=== PATIENT | female | born 1990 | race Caucasian/White ===

== ENCOUNTER → 2017-05-01 | Outpatient (CLI) | payer OTHER ==
[2017-05-03 09:50] LABS: FOLLICLE STIMULATING HORMONE 7.3 mIU/mL (.); LUTEINIZING HORMONE 6.8 mIU/mL (.); PROLACTIN 13.3 ng/mL (4.8-23.3)
== END ==
LOC: OD 08:11
PROVIDERS: ATTEND Specialist
DX: N97.9 Female infertility, unspecified (principal)
CPT/HCPCS: 36415; 83001; 83002; 84146

== ENCOUNTER → 2017-05-06 | Outpatient (CLI) | payer OTHER ==
--- NOTE | 2017-05-06 16:07 | RADIOLOGY REPORT (SQ) ---
EXAM DESCRIPTION: HYSTEROSALPINGOGRAM; HYSTERO CATH/INJECTION COMPLETED DATE/TIME: 05/06/2017 3:31 pm REASON FOR STUDY: INFERTILITY N97.9 FEMALE INFERTILITY, UNSPECIFIED COMPARISON: None. PROCEDURE: PRE-PROCEDURE: Procedure was explained to the patient. She was told to expect cramping du ring the procedure, and possible spotting post procedure. PROCEDURE: The cervix was prepped in sterile fashion. Under direct visual inspection, the cervix was cannulated with the hysterosalpingogram catheter and contrast injected. TECHNIQUE: Temporal fluoroscopic images acquired during the procedure stored to PACS. FLUOROSCOPY TIME: 1 minutes 1 second 12 images saved to PACS. LIMITATIONS: None. FINDINGS: On initial injection of contrast, there was filling of the left fallopian tube with prompt spill. Catheter was repositioned and there was filling of the uterine cavity which appears normal m idline and to left of midline. On the right, there is dilatation of the isthmus with eventual fillin g of the right fallopian tube and spill on the right. POST PROCEDURE: The patient tolerated the procedure with no adverse effects. 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 COMMENT: Quality ID [id number]: Final reports for procedures using fluoroscopy that document radiation exp osure indices, or exposure time and number of fluorographic images (if radiation exposure indices are not available) TECHNICAL DOCUMENTATION: JOB ID: [id number] [employer]- All Rights Reserved
== END ==
LOC: RAD 14:41
PROVIDERS: ATTEND Obstetrics & Gynecology
DX: N97.9 Female infertility, unspecified (principal)
CPT/HCPCS: 58340; 74740